=== PATIENT | male | born 1955 ===

== ENCOUNTER 2018-07-15 17:11 | Emergency (ER) | payer OTHER ==
--- NOTE | 2018-07-15 19:43 | ED PDOC ---
Lower Extremity Pain/Injury Time Seen by Provider: 07/15/18 19:15 Chief Complaint (Nursing): Lower Extremity Problem/Injury Chief Complaint (Provider): LEFT KNEE PAIN History Per: Patient History/Exam Limitations: no limitations Onset/Duration Of Symptoms: Hrs Current Symptoms Are (Timing): Still Present Severity: Moderate Pain Scale Rating Of: 7 Additional History Per: Patient Additional Complaint(s): 62 Y/O MALE PRESENTS TO ED C/O LEFT KNEE PAIN STARTED AFTER TRIP AND FALL THIS AM. PATIENT REPORTS HE WAS GOING UP THE STEPS AND LANDED ON LEFT KNEE. PATIENT DENIES HEAD INJURY. STATES PAIN WORSE WHEN APPLYING WEIGHT TO KNEE FOR WHICH HE HAS BEEN AMBULATING WITH CRUTCHES TODAY. PATIENT ALSO STATES HE DRANK ALCOHOL THIS AM. - Knee Description Of Injury: Fell Currently Unable To: Bear Weight Past Medical History Reviewed: Historical Data, Nursing Documentation, Vital Signs Vital Signs: Last Vital Signs Temp 97.7 F 07/15/18 17:48 Pulse 102 H 07/15/18 17:48 Resp 18 07/15/18 17:48 BP 135/88 07/15/18 17:48 Pulse Ox 99 07/15/18 17:48 - Medical History PMH: HTN - Surgical History Surgical History: No Surg Hx - Family History Family History: States: Unknown Family Hx - Living Arrangements Living Arrangements: Alone - Social History Alcohol: > 2 Drinks/Day Drugs: Denies - Allergies Allergies/Adverse Reactions: Allergies Allergy/AdvReac Type Severity Reaction Status Date / Time haloperidol [From Haldol] Allergy PAIN Verified 07/15/18 17:48 Review of Systems ROS Statement: Except As Marked, All Systems Reviewed And Found Negative Musculoskeletal: Positive for: Leg Pain (LEFT KNEE PAIN) Neurological: Negative for: Weakness, Numbness, Incoordination, Change in Speech, Confusion, Dizziness Physical Exam - Reviewed Nursing Documentation Reviewed: Yes Vital Signs Reviewed: Yes - Physical Exam Appears: Positive for: Well, Non-toxic, No Acute Distress Head Exam: Positive for: ATRAUMATIC, NORMAL INSPECTION, NORMOCEPHALIC Skin: Positive for: Normal Color, Warm, DRY Eye Exam: Positive for: EOMI, Normal appearance, PERRL ENT: Positive for: Normal ENT Inspection Neck: Positive for: Normal, Painless ROM Cardiovascular/Chest: Positive for: Regular Rate, Rhythm Respiratory: Positive for: CNT, Normal Breath Sounds Gastrointestinal/Abdominal: Positive for: Normal Exam, Soft Back: Positive for: Normal Inspection Extremity: Positive for: Normal ROM, Tenderness (LEFT KNEE, SUPRAFICIAL ABRASIONS NOTED. ), Capillary Refill (<2 SECS CAP REFILL ). Negative for: Deformity Neurological/Psych: Positive for: Awake, Alert, Normal Tone, Oriented - ECG O2 Sat by Pulse Oximetry: 99 Medical Decision Making Medical Decision Making: MOTRIN 600MG PO LEFT KNEE XRAY 2000: PATIENT ENDORSED TO VERONICA REDDY FOR FOLLOW UP OF LEFT KNEE XRAY REPORT. Disposition - Clinical Impression Clinical Impression: Knee injury - Patient ED Disposition Is Patient to be Admitted: No Counseled Patient/Family Regarding: Diagnosis, Rx Given - Disposition Disposition: Transfer of Care Disposition Time: 20:00 Condition: GOOD Instructions: Knee Sprain (DC) Patient Signed Over To: Lillian Aragon Handoff Comments: XRAY RESULTS FOLLOW-UP - POA Present On Arrival: None
--- NOTE | 2018-07-15 20:23 | ED PDOC ---
- ECG O2 Sat by Pulse Oximetry: 99 Medical Decision Making Medical Decision Making: Patient endorsed to me by TRACTOR OPERATOR [employer] Wilner pending Left knee x-ray Left knee x-ray: no acute fracture or abnormality noted. Continues to have pain but able to bear weight. CALLIE bandage placed. Stable for d/c home. Disposition - Clinical Impression Clinical Impression: Knee injury - POA Present On Arrival: None - Disposition Referrals: [facility] [place] [Outside] Disposition: Routine/Home Disposition Time: 22:38 Condition: STABLE Additional Instructions: Take Ibuprofen for pain. Follow up with orthopedics if your pain persists. Rest and elevate your leg. Use knee brace for comfort. Prescriptions: Ibuprofen [Motrin Tab] 600 mg PO Q6 PRN 7 Days tab PRN Reason: Pain, Moderate (4-7) Instructions: Knee Sprain (DC), Active Range of Motion Exercises, Knees and Ankles Forms: [facility] (Lux[place]ish) Print Language: ITALIAN
[2018-07-15] MEDS ORDERED: Oxycodone/Acetaminophen 5/325 mg Tab PO ONE (20:36)
[2018-07-15 22:44] VITALS: BP 123/63; PULSE 63; RESP 16; TEMP 98.3
[2018-07-16 07:11] VITALS: O2SAT 99
--- NOTE | 2018-07-16 08:49 | RAD ---
Date of service: 07/15/2018 PROCEDURE: Left Knee Radiographs. HISTORY: Pain. COMPARISON: None. TECHNIQUE: 2 views obtained. FINDINGS: BONES: No acute fracture or destructive bony lesion identified. JOINTS: Degenerative joint space narrowing and articular cortical sclerosis identified at the medial lateral femorotibial compartments compatible with degenerative joint disease. No subluxation or dislocation. JOINT EFFUSION: A moderate suprapatellar bursa effusion is identified. OTHER FINDINGS: None. IMPRESSION: Moderate suprapatellar bursa effusion. No acute fracture or dislocation. Moderate osteoarthritis.
== END 2018-07-15 22:45 | disposition home or self-care (01) ==
LOC: H.ER 17:11
DX: S89.92XA Unspecified injury of left lower leg, initial encounter (principal); W19.XXXA Unspecified fall, initial encounter; Y92.89 Other specified places as the place of occurrence of the external cause; I10 Essential (primary) hypertension; Z88.8 Allergy status to other drugs, medicaments and biological substances